=== PATIENT | female | born 1995 | race Caucasian/White ===

== ENCOUNTER → 2016-09-21 | Outpatient (CLI) | payer BC ==
[~2016-09-21] MED LIST: NORC5TAB PO; PERC5TAB12 PO
[2016-09-21 13:11] LABS: BASOPHIL # 0.1 TH/MM3 (0-0.2); BASOPHIL % 0.7 % (0.0-2.0); EOSINOPHIL # 0.3 TH/MM3 (0-0.4); EOSINOPHIL % 3.7 % (0.0-4.0); HEMATOCRIT 39.7 % (35.0-46.0); HEMO FLAGS DIFF FINAL; LYMPH % 16.8 % (9.0-44.0); LYMPHOCYTE # 1.4 TH/MM3 (1.0-4.8); MEAN CELL VOLUME 88.1 FL (80.0-100.0); MEAN CORPUSCULAR HEMOGLOBIN 29.6 PG (27.0-34.0); MEAN CORPUSCULAR HGB CONC 33.6 % (32.0-36.0); MONO % 6.4 % (0.0-8.0); NEUT % 72.4 % (16.0-70.0); PLATELET COUNT 320 TH/MM3 (150-450); RED BLOOD COUNT 4.51 MIL/MM3 (4.00-5.30); RED CELL DISTRIBUTION WIDTH 12.9 % (11.6-17.2); WHITE BLOOD COUNT 8.3 TH/MM3 (4.0-11.0)
[2016-09-21 13:32] LABS: ANION GAP 10 MEQ/L (5-15); AST (GOT) 8 U/L (15-37); BICARBONATE 25.4 MEQ/L (21.0-32.0); BLOOD UREA NITROGEN 10 MG/DL (7-18); CHLORIDE 104 MEQ/L (98-107); GLOMERULAR FILTRATION RATE 117 ML/MIN (>89); POTASSIUM 3.9 MEQ/L (3.5-5.1); SODIUM (NA) 139 MEQ/L (136-145)
[2016-09-21 13:33] LABS: ALT (GPT) 8 U/L (10-53)
[2016-09-21 13:35] LABS: ALKALINE PHOSPHATASE 67 U/L (45-117); BLOOD, URINE NEG (NEG); COMMENT (UR) CULT NOT INDICATED; CULTURE IF INDICATED CULT NOT INDICATED; GLUCOSE,URINE NEG (NEG); KETONE, URINE NEG (NEG); MUCUS URINE FEW /lpf (OCC); NITRITE,URINE NEG (NEG); PH, URINE 7.5 (5.0-8.5); SQUAMOUS EPITHELIAL CELL URINE 4 /hpf (0-5); TOTAL BILIRUBIN ADULT 0.7 MG/DL (0.2-1.0); URINE COLOR YELLOW (YELLW/STRAW)
--- NOTE | 2016-10-03 06:14 | MP ---
cc: Xu STANLEY MD DATE OF SURGERY: 09/30/2016 PREOPERATIVE DIAGNOSIS: 1. Large ovarian cyst. 2. Menorrhagia. 3. Dysmenorrhea. 4. Pelvic pain. POSTOPERATIVE DIAGNOSIS: 1. Large ovarian cyst. 2. Menorrhagia. 3. Dysmenorrhea. 4. Pelvic pain. 5. Endometriosis. OPERATION: 1. Examination under anesthesia. 2. Dilation and curettage of the uterus. 3. Hysteroscopic exam. 4. Laparoscopic examination. 5. Right ovarian cystectomy. 6. Lysis of adhesions. 7. Multiple biopsies of the peritoneum. ANESTHESIA: General endotracheal intubation SURGEON Xu Stanley MD. FINDINGS The D&C revealed a normal uterine cavity with no polyps. There was some cervical stenosis and we did begin to make a false passage but that was quickly remedied with the hysteroscope. The tissue was normal in amount. There were no polyps or submucous myomas seen. The laparoscopic exam revealed a huge right ovary 7 x 8 cm. The fluid inside looked like a hemorrhagic fluid and not like to chocolate cyst, however, she did have several adhesions around this ovary that needed to be taken down a reminiscent of endometriosis. There was adhesions around the right ovary and there was several spots of possible endometriosis. The cul-de-sacs were clean and the pelvic singh had some of these small areas that were reminiscent of endometriosis and they were biopsied. The upper abdomen looked normal, complications were none. Counts were correct. Estimated blood loss 25 cc. Fluids are crystalloid. The patient tolerated the procedure well and went to the recovery room in good condition. PROCEDURE IN DETAIL The patient was taken to the operating room identified by name band and verbally. She was given a general anesthetic, carefully placed in dorsolithotomy position, prepped and draped in the usual sterile manner for laparoscopic surgery. The time-out was taken and a Donaldson catheter was inserted. Examination under anesthesia was carried out with the above findings essentially the cyst was not palpable but could feel a fullness on a right side. Once examination under anesthesia was carried out, a weighted speculum was placed in the vagina. The anterior lip of cervix was grasped with a single-tooth tenaculum. There was a bit of cervical stenosis and we began to dilate her into took the hysteroscope and looked in, we had created a false passage so I went back and got a small probe, found the os and then serially dilated without difficulty. This gave us a decent visualization of the endometrial cavity #1 sharp curette was then used to obtain the endometrial curettings. I felt that some of her dysmenorrhea may be due to the cervical stenosis. At this point a Hulka clamp was placed and the surgeon changed gloves and the small subumbilical incision was made with a 5 mm trocar we entered the abdomen under direct vision and a pneumoperitoneum was created with 3 liters of CO2. Once we visualize the abdomen and pelvis. We decided we could try to do this laparoscopically inferior lateral to the umbilicus on the left we put a 12-mm port and on the right at 5 mm port. The ovary was opened up and a thin brown fluid was noted. It looked more like a hemorrhagic cyst then endometriotic cyst. Once we opened the ovary the cyst was fairly large but he could see that the cyst was lined with a cover and we felt that we could dissect this off. We needed one more puncture so left of the umbilicus we placed 5 mm trocar without difficulty and held the ovary, that thin layer of the cyst wall was then carefully dissected free and sent for pathologic evaluation. The bed was then coagulated with Kleppinger forceps. The bleeding was excellent and felt like we had done this really great job on getting that cyst wall out of her ovary. At this point we took a 2-0 suture and repaired the defect in the ovary. The adhesions were taken down all around that ovary with blunt and sharp dissection without any difficulty. Once this had been accomplished the ovary looked fairly normal. We used a large amount of fluid approximately 3 liters to wash out the abdomen and pelvis at this time and then we began taking biopsies of the anterior and posterior cul-de-sac to try to confirm the diagnosis of endometriosis. At this point everything looked normal. We took pictures and looked around the entire pelvis and abdomen. The left ovary was perfectly normal. The tubes were perfectly normal. At this point, once everything was inspected and hemostatic. We removed the trocars, repaired the 12-mm fascial defect with a 2-0 Vicryl. Skin was repaired with 4-0 Monocryl. She tolerated the procedure well went to recovery room in good condition R. MD EV Mcintyre/eddie /12:53 PM /5:50 AM
== END ==
LOC: CPRE 12:33
PROVIDERS: ATTEND Obstetrics & Gynecology
DX: Z01.812 Encounter for preprocedural laboratory examination (principal); N83.201 Unspecified ovarian cyst, right side; R10.2 Pelvic and perineal pain; N92.0 Excessive and frequent menstruation with regular cycle; N94.6 Dysmenorrhea, unspecified
CPT/HCPCS: 36415; 80053; 81001; 85025

== ENCOUNTER 2016-09-30 07:59 | Observation (INO) | payer BC ==
[~2016-09-30] VITALS: Ht 165.1 cm; Wt 86.8 kg
[2016-09-30 08:29] VITALS: BP 123/83; PULSE 83; RESP 20; TEMP 99; O2SAT 97
[2016-09-30] MEDS ORDERED: METOPROLOL TARTRATE 25 MG TAB PO PRN (08:30)
[2016-09-30] MEDS ORDERED: INSULIN HUMAN REGULAR 1,000 UNITS/10 ML VIAL SQ PRN (08:30)
[2016-09-30] MEDS ORDERED: CHLORHEXIDINE GLUCONATE 2 % 1 PACK (2 CLOTHS) TOPICAL PRN (08:30)
[2016-09-30] MEDS ORDERED: POVIDONE IODINE 5% (ANTISEPSIS KIT) 4 APPLICATIONS EACH NARE PRN (08:30)
[2016-09-30] MEDS ORDERED: SODIUM CHLORID 0.9% 500 ML IV PRN (08:30)
[2016-09-30] MEDS ORDERED: DEXAMETHASONE SOD PHOS 4 MG/ML VIAL ONE (09:48)
[2016-09-30] MEDS ORDERED: ACETAMINOPHEN 1000 MG/100 ML VIAL IV ONE (09:48)
[2016-09-30] MEDS ORDERED: MIDAZOLAM HCL 2 MG/2 ML VIAL ONE ×2 (09:48→14:09)
[2016-09-30] MEDS ORDERED: FAMOTIDINE 20 MG/2 ML VIAL ONE (09:49)
[2016-09-30] MEDS ORDERED: OXYTOCIN 10 UNIT/ML AMP ONE (10:24)
[2016-09-30] MEDS ORDERED: SILVER NITR/POTASSIUM NITRATE APPLICATORS ONE (10:24)
[2016-09-30 10:54] LABS: BETA HCG QUANT LESS THAN 1 MIU/ML (0-5)
[2016-09-30] MEDS ORDERED: NORMOSOL R INJ 1,000 ML IV ONE (12:00)
[2016-09-30] MEDS ORDERED: NEOSTIGMINE 3 MG/3 ML SYR IV ONE (12:00)
[2016-09-30] MEDS ORDERED: KETOROLAC TROMETHAMINE 60 MG/2 ML (IM) VIAL IM ONE (12:00)
[2016-09-30] MEDS ORDERED: ONDANSETRON HCL 4 MG/2 ML VIAL IV PUSH ONE (12:00)
[2016-09-30] MEDS ORDERED: PROPOFOL 200 MG/20 ML AMP IV ONE (12:00)
[2016-09-30] MEDS ORDERED: DO NOT ADM ANY ANTICOAGULANT DRUGS PRN (13:43)
[2016-09-30] MEDS ORDERED: oxyCODONE/ACETAMINOPHEN 5 MG/325 MG TAB PO PRN (14:00)
[2016-09-30] MEDS ORDERED: fentaNYL CITRATE 250 MCG/5 ML AMP ONE (14:10)
[2016-09-30] MEDS ORDERED: *morphine SULFATE 8 MG/ML PERIprocedure ONLY ONE ×3 (14:14→14:56)
[2016-09-30] MEDS ORDERED: *MEPERIDINE 25 MG INJ VIAL PERIprocedural Use ONLY ONE (14:18)
[2016-09-30] MEDS ORDERED: *ONDANSETRON 4 MG VIAL PERIprocedural Use ONLY ONE (14:22)
[2016-09-30] MEDS ORDERED: *PROMETHAZINE 25 MG/ML VIAL PERIprocedural use ONLY ONE (14:50)
[2016-09-30] MEDS ORDERED: ONDANSETRON HCL 4 MG/2 ML VIAL IV PUSH PRN ×2 (15:00→18:45)
[2016-09-30] MEDS: LACTATED RINGER'S 1000 ML IV PRN ×2 (17:50→22:36)
[2016-09-30] MEDS: oxyCODONE/ACETAMINOPHEN 5 MG/325 MG TAB PO PRN (17:51)
[2016-09-30 18:00] VITALS: BP 118/70; PULSE 109; RESP 18; TEMP 98.2
[2016-09-30 19:30] VITALS: BP 114/65; PULSE 96; RESP 18; TEMP 98.4; O2SAT 96
[2016-09-30] MEDS: HYDROmorphone HCL PF 2 MG/ML VIAL IM PRN ×2 (19:35→23:40)
[2016-09-30] MEDS ORDERED: DOCUSATE SODIUM 50 MG/SENNA 8.6 MG TAB PO PRN (22:30)
[2016-09-30] MEDS ORDERED: PROMETHAZINE HCL 25 MG SUPP RECTAL PRN (22:30)
[2016-09-30] MEDS ORDERED: PROMETHAZINE INJ 25 MG/ML VIAL IM PRN (22:30)
[2016-09-30] MEDS: ZOLPIDEM TARTRATE 5 MG TAB PO PRN (22:36)
[2016-09-30] MEDS: DOCUSATE SODIUM 50 MG/SENNA 8.6 MG TAB PO ONE ×2 (22:36→22:41)
[2016-09-30] MEDS: KETOROLAC TROMETHAMINE 30 MG/ML (IVP) VIAL IV PUSH SCH (22:37)
[2016-09-30] MEDS ORDERED: PROCHLORPERAZINE 25 MG SUPP RECTAL PRN (22:45)
[2016-09-30 23:30] VITALS: BP 112/71; PULSE 95; RESP 18; TEMP 99.1; O2SAT 95
[2016-10-01] MEDS: HYDROmorphone HCL PF 2 MG/ML VIAL IM PRN ×2 (03:21→07:52)
[2016-10-01 03:30] VITALS: BP 109/67; PULSE 98; RESP 18; TEMP 99.2; O2SAT 98
[2016-10-01] MEDS: KETOROLAC TROMETHAMINE 30 MG/ML (IVP) VIAL IV PUSH SCH ×2 (04:56→11:48)
[2016-10-01] MEDS: LACTATED RINGER'S 1000 ML IV PRN ×2 (06:04→13:55)
[2016-10-01 07:35] VITALS: BP 95/58; PULSE 114; RESP 18; TEMP 98.4; O2SAT 99
--- NOTE | 2016-10-01 09:44 | RADRPT ---
EXAM DATE/TIME: 10/01/2016 09:14 [facility] COMPARISON: No previous studies available for comparison. INDICATIONS : Chest pain. Shortness of breath. MEDICAL HISTORY : None. SURGICAL HISTORY : None. ENCOUNTER: Initial ACUITY: 1 day PAIN SCORE: 8/10 LOCATION: Left chest FINDINGS: There are patchy infiltrates in both lung bases. The upper lung borja are clear. No definite pleural effusions. The heart size is within normal limits. The bony structures are grossly intact. CONCLUSION: There are patchy infiltrates in both lung bases suggestive of atelectasis versus pneumonia. Abelino De La Paz MD on October 01, 2016 at 9:41 Board Certified Radiologist. This report was verified electronically.
[2016-10-01 10:43] LABS: BLOOD GAS HCO3 23 mmol/L (22-26); BLOOD GAS METHEMOGLOBIN 0.9 % (0-2); BLOOD GAS O2 HGB SATURATION 83 % (90-100); BLOOD GAS OXYGEN CONTENT 13.1 Vol % (12.0-20.0); BLOOD GAS PCO2 39 mmHg (38-42); BLOOD GAS PO2 51 mmHg (61-120); BLOOD GAS TOTAL HGB 11.2 G/DL (12.0-16.0); TEMP CORR TO 98.6
[2016-10-01 10:47] LABS: CRITICAL VALUE YES; FIO2 21 %; OXYGEN DEVICE ROOM AIR
[2016-10-01 10:48] LABS: DRAW SITE RT RADIAL; NUMBER OF ARTERIAL PUNCTURES 1; STAT NO; ULNAR PULSE PRESENT
[2016-10-01 11:00] VITALS: O2SAT 90
[2016-10-01 11:55] VITALS: BP 122/74; PULSE 111; RESP 18; TEMP 99.4; O2SAT 93
--- NOTE | 2016-10-01 12:49 | HHI.PR ---
Subjective Remarks Had a terrible time yesterday with the nausea and vomiting. The nausea is better today I am having some SOB and chest pains. No fever or chills/ Objective Vital Signs Date Time Temp Pulse Resp B/P Pulse Ox O2 Delivery O2 Flow Rate FiO2 10/01/16 07:35 98.4 114 18 95/58 99 10/01/16 03:30 99.2 98 18 109/67 98 09/30/16 23:30 99.1 95 18 112/71 95 09/30/16 19:30 98.4 96 18 114/65 96 09/30/16 18:00 98.2 109 18 118/70 09/30/16 16:00 108 16 115/69 96 Room Air 09/30/16 15:30 110 16 115/61 95 Room Air 09/30/16 15:00 110 16 129/78 96 Room Air 09/30/16 14:45 110 16 101/59 96 Room Air 09/30/16 14:30 106 16 103/59 95 09/30/16 14:15 104 16 108/65 95 Nasal Cannula 2 09/30/16 14:00 82 16 110/64 97 Nasal Cannula 2 09/30/16 13:48 98.5 84 16 110/60 95 Nasal Cannula 2 I/O 09/30/16 09/30/16 09/30/16 10/01/16 10/01/16 10/01/16 06:59 14:59 22:59 06:59 14:59 22:59 Intake Total 950 ml Output Total 650 ml 200 ml Balance 300 ml -200 ml Intake IV Total 950 ml Output Urine Total 450 ml 200 ml Emesis 200 ml Imaging Last 24 hours Impressions Chest X-Ray 10/01/16 0000 Signed Impressions: Service Date/Time: September 09:14 - CONCLUSION: There are patchy infiltrates in both lung bases suggestive of atelectasis versus pneumonia. Abelino De La Paz MD Other Results Color is good this am Chest is clear. CV RRR no murmer Abd issoft and non tender. Incision is clean and dry Ext No CCE. Assessment and Plan Assessment and Plan POD #1 S/P D+C, Laparoscopy with ovarian cystectomy SOB Not sure the etiology of this so I will get a EKG, ABG and CXR. She is super anxious and will see what the work up shows. Her surgery went perfectly but now she is having problems so I am not ready to discharge her today. Will order a medicine consultation if abnormalities are found. Xu Morales MD Oct 01, 2016 12:49
[2016-10-01] MEDS: HYDROmorphone HCL PF 1 MG/ML VIAL IM PRN ×3 (14:14→21:07)
[2016-10-01] MEDS ORDERED: SCOPOLAMINE 1.5 MG PATCH T-DERMAL ONE (14:45)
[2016-10-01 15:36] LABS: AUTOMATED NEUTROPHIL # 6.8 TH/MM3 (1.8-7.7); BASOPHIL % 0.3 % (0.0-2.0); EOSINOPHIL # 0.1 TH/MM3 (0-0.4); HEMATOCRIT 32.4 % (35.0-46.0); HEMO FLAGS DIFF FINAL; LYMPH % 17.5 % (9.0-44.0); LYMPHOCYTE # 1.6 TH/MM3 (1.0-4.8); MEAN CELL VOLUME 87.7 FL (80.0-100.0); MEAN CORPUSCULAR HEMOGLOBIN 30.2 PG (27.0-34.0); MEAN CORPUSCULAR HGB CONC 34.5 % (32.0-36.0); MONO % 6.8 % (0.0-8.0); NEUT % 74.4 % (16.0-70.0); PLATELET COUNT 208 TH/MM3 (150-450); RED BLOOD COUNT 3.69 MIL/MM3 (4.00-5.30); RED CELL DISTRIBUTION WIDTH 12.7 % (11.6-17.2); WHITE BLOOD COUNT 9.1 TH/MM3 (4.0-11.0)
--- NOTE | 2016-10-01 17:17 | HHI.PR ---
Subjective Interval History This is a 21-year-old female who had excision of a right sided hemorrhagic ovarian cyst 1 09/30/16. Since the surgery she has been repeatedly vomiting. Her blood gas showed hypoxemia with room air PaO2 of 51 and a saturation of 83% . Chest x-ray showed bibasilar infiltrate versus atelectasis. The patient was seen in the presence of her mother and her nurse in room 100 at [facility] by the undersigned. She is alert and oriented. She was not in distress during this examination except for anxiety. No fever no cough no sputum. No urinary symptoms. She is receiving 1 mg of IM Dilaudid for abdominal pain, she said that it does not work. No chest pain. She does seem anxious with heart rate about 100 Review of Systems Constitutional Constitutional Remarks As detailed above, 10 systems reviewed and otherwise negative Vitals/Results Intake & Output 09/30/16 09/30/16 10/01/16 15:00 23:00 07:00 Intake Total 950 ml Output Total 650 ml 200 ml Balance 300 ml -200 ml Intake IV Total 950 ml Output Urine Total 450 ml 200 ml Emesis 200 ml Vital Signs Vital Signs Date Time Temp Pulse Resp B/P Pulse Ox O2 Delivery O2 Flow Rate FiO2 10/01/16 11:55 99.4 111 18 122/74 93 10/01/16 11:00 90 Nasal Cannula 2.00 10/01/16 07:35 98.4 114 18 95/58 99 10/01/16 03:30 99.2 98 18 109/67 98 09/30/16 23:30 99.1 95 18 112/71 95 09/30/16 19:30 98.4 96 18 114/65 96 09/30/16 18:00 98.2 109 18 118/70 CBC/BMP: 10/01/16 1507 10/01/16 1507 Lab Results Laboratory Tests Test 10/01/16 10/01/16 10:23 15:07 Blood Gas Puncture Site RT RADIAL Blood Gas Patient Temperature 98.6 Blood Gas HCO3 23 mmol/L Blood Gas Base Excess -1.0 mmol/L Blood Gas Oxygen Saturation 83 % Arterial Blood pH 7.40 Arterial Blood Partial 39 mmHg Pressure CO2 Arterial Blood Partial 51 mmHg Pressure O2 Arterial Blood Oxygen Content 13.1 Vol % Arterial Blood 2.0 % Carboxyhemoglobin Arterial Blood Methemoglobin 0.9 % Blood Gas Hemoglobin 11.2 G/DL Oxygen Delivery Device ROOM AIR Blood Gas Inspired Oxygen 21 % White Blood Count 9.1 TH/MM3 Red Blood Count 3.69 MIL/MM3 Hemoglobin 11.2 GM/DL Hematocrit 32.4 % Mean Corpuscular Volume 87.7 FL Mean Corpuscular Hemoglobin 30.2 PG Mean Corpuscular Hemoglobin 34.5 % Concent Red Cell Distribution Width 12.7 % Platelet Count 208 TH/MM3 Mean Platelet Volume 9.6 FL Neutrophils (%) (Auto) 74.4 % Lymphocytes (%) (Auto) 17.5 % Monocytes (%) (Auto) 6.8 % Eosinophils (%) (Auto) 1.0 % Basophils (%) (Auto) 0.3 % Neutrophils # (Auto) 6.8 TH/MM3 Lymphocytes # (Auto) 1.6 TH/MM3 Monocytes # (Auto) 0.6 TH/MM3 Eosinophils # (Auto) 0.1 TH/MM3 Basophils # (Auto) 0.0 TH/MM3 CBC Comment DIFF FINAL Differential Comment Blood Urea Nitrogen 5 MG/DL Creatinine 0.57 MG/DL Estimat Glomerular Filtration 131 ML/MIN Rate Lactic Acid Level 1.0 mmol/L Physical Exam General General Appearance: Well Developed, Anxious, Obese Eyes Eye Exam: Pupils Reactive Ears & Nose Ears & Nose Exam: Nasal Mucosa [place] Throat Throat Exam: Oral Mucosa [place] & Moist Neck Neck Exam: Trachea Midline Pulmonary Resp Exam: Breath Sounds Equal, No Distress Cardiology CV Exam: Tachycardia Gastrointestinal/Abdomen GI Exam: Soft, Bowel Sounds Present Musculoskeletal MS Exam: Normal Gait, Normal Tone, Good Strength Integumentary Skin Exam: Warm, Dry Neurologic Neuro Exam: Alert, Awake, Oriented, Speech Clear, Moving All Extremities, Sample Display Preparer Equal, No Focal Deficits Psychiatric Psych Exam: Appropriate Responses VTE Prophylaxis VTE Prophylaxis Device: SCDs Assessment/Plan Assessment/Plan Assessment Intractable postoperative vomiting Hypoxemia Sinus tachycardia Normal lactic acid Anxiety Management Continue supplemental oxygen Pain control CT angiogram of the chest rule out pulmonary embolism Continue incentive spirometry Within normal lactic acid she is unlikely to have ammonia Most probably she does have by basilar atelectasis may be causing the hypoxemia Clinically the suspicion for pulmonary embolism is low however It would be prudent to check a CT angiogram to rule out that small possibility Thank you for allowing us to participate in the care of this patient in consultation The case was discussed with her and her mother and her nurse Case was discussed also with Dr. Morales If the CT of the chest is negative she could be discharged home To assist in her nausea control scopolamine was also ordered 40 minutes Medardo Ross MD Oct 01, 2016 17:17
[2016-10-01 17:45] VITALS: BP 118/78; PULSE 110; RESP 22; TEMP 98.2; O2SAT 94
[2016-10-01] MEDS ORDERED: IOHEXOL 350 MG/ML 10 ML VIAL (for RAD DIAG) IV ONE (19:17)
--- NOTE | 2016-10-01 19:19 | RADRPT ---
EXAM DATE/TIME: 10/01/2016 17:03 [facility] COMPARISON: No previous studies available for comparison. INDICATIONS : Short of breath. IV CONTRAST: 50 cc Omnipaque 350 (iohexol) IV RADIATION DOSE: 15.51 CTDIvol (mGy) MEDICAL HISTORY : None SURGICAL HISTORY : None. ENCOUNTER: Initial ACUITY: 1 day PAIN SCALE: 3/10 LOCATION: Bilateral chest TECHNIQUE: Volumetric scanning of the chest was performed using a pulmonary embolism protocol MIP images were re constructed. Using automated exposure control and adjustment of the mA and/or kV according to patien t size, radiation dose was kept as low as reasonably achievable to obtain optimal diagnostic quality images. DICOM format image data is available electronically for review and comparison. Follow-up recommendations for incidentally detected pulmonary nodules are based at a minimum on nodul e size and patient risk factors according to Fleischner Society Guidelines. FINDINGS: PULMONARY ARTERIES: No filling defects are seen in the pulmonary arteries through the segmental level. LUNGS: Bibasilar consolidative changes. PLEURAE: There is no pleural thickening or pleural effusion. MEDIASTINUM: There is good visualization of the great vessels of the middle mediastinum. No evidence of mediastin al or hilar adenopathy/mass. MUSCULOSKELETAL: Within normal limits for patient age. MISCELLANEOUS: The visualized upper abdominal organs demonstrate no acute abnormality. CONCLUSION: Bibasilar consolidative changes without central pulmonary emboli. Mian Saucedo MD FACR on October 01, 2016 at 19:17 Board Certified Radiologist. This report was verified electronically.
[2016-10-01] MEDS: IBUPROFEN 600 MG TAB PO PRN (19:52)
[2016-10-01 20:00] VITALS: BP 119/80; PULSE 113; RESP 22; TEMP 98.8; O2SAT 93
[2016-10-01] MEDS ORDERED: HYDROmorphone HCL PF 1 MG/ML VIAL IM PRN (21:28)
[2016-10-01] MEDS ORDERED: LACTATED RINGER'S 1000 ML INJ 1,000 ML IV SCH (21:30)
[2016-10-01] MEDS: ZOLPIDEM TARTRATE 5 MG TAB PO PRN (23:26)
[2016-10-02] VITALS: PULSE 107; RESP 18; TEMP 99.3; O2SAT 93
[2016-10-02 03:00] VITALS: BP 97/65; PULSE 114; RESP 18; TEMP 98.3; O2SAT 94
[2016-10-02] MEDS: IBUPROFEN 600 MG TAB PO PRN (03:00)
[2016-10-02] MEDS: oxyCODONE/ACETAMINOPHEN 5 MG/325 MG TAB PO PRN ×2 (03:01→08:33)
--- NOTE | 2016-10-02 07:30 | HHI.PR ---
Subjective Remarks Doing better, no vomiting last nite SOB is better and using the incentive spirometry. Pain is controlled with oral meds. Objective Vital Signs Date Time Temp Pulse Resp B/P Pulse Ox O2 Delivery O2 Flow Rate FiO2 10/02/16 04:15 16 10/02/16 04:15 16 10/02/16 03:00 98.3 114 18 97/65 94 10/02/16 00:00 99.3 107 18 93 10/01/16 22:00 20 10/01/16 20:00 98.8 113 22 119/80 93 10/01/16 18:15 Nasal Cannula 2.00 10/01/16 17:45 98.2 110 22 118/78 94 10/01/16 11:55 99.4 111 18 122/74 93 10/01/16 11:00 90 Nasal Cannula 2.00 10/01/16 07:35 98.4 114 18 95/58 99 I/O 10/01/16 10/01/16 10/01/16 10/02/16 10/02/16 10/02/16 06:59 14:59 22:59 06:59 14:59 22:59 Intake Total 1560 ml Output Total 200 ml 800 ml 250 ml Balance -200 ml -800 ml 1310 ml Intake Oral 360 ml IV Total 1200 ml Output Urine Total 200 ml 800 ml 250 ml # Voids 1 Result Diagram: 10/01/16 1507 10/01/16 1507 Imaging Last 48 hours Impressions Chest X-Ray 10/01/16 0000 Signed Impressions: Service Date/Time: September 09:14 - CONCLUSION: There are patchy infiltrates in both lung bases suggestive of atelectasis versus pneumonia. Abelino De La Paz MD CT Angiography 10/01/16 0000 Signed Impressions: Service Date/Time: September 17:03 - CONCLUSION: Bibasilar consolidative changes without central pulmonary emboli. Mian Saucedo MD FACR Other Results chest is clear CV RRR not tachycardic now Abd is soft and non tender. Ext no CCE Assessment and Plan Assessment and Plan POD #2 S/P D+C, Laparoscopy with ovarian cystectomy Anemia will start fe after the narcotics. Ready to go home RTO in one week. Xu Morales MD Oct 02, 2016 07:30
--- NOTE | 2016-10-02 07:31 | HHI.DCPOC ---
Discharge Care Plan Diagnosis: (1) Ovarian benign neoplasm (2) Nausea after anesthesia Report Symptoms to Your Doctor -Temperature above 100.5 degrees -Redness, of incision or excessive or foul smelling drainage -Unusual pain or calf pain -Increased vaginal bleeding -Painful or difficulty urinating -Feelings of extreme sadness or anxiety after 2 weeks Goals to Promote Your Health * To prevent worsening of your condition and complications * To maintain your health at the optimal level Directions to Meet Your Goals Take your medications as prescribed Follow your dietary instruction Follow activity as directed Ensure plenty of rest for recovery Drink fluids for hydration Keep your appointments as scheduled Take your immunizations and boosters as scheduled If your symptoms worsen call your PCP, if no PCP go to Urgent Care Center or Emergency Room Smoking is Dangerous to Your Health. Avoid second hand smoke Call the 24-hour crisis hotline for domestic abuse at Xu Morales MD Oct 02, 2016 07:31
[2016-10-02 08:30] VITALS: BP 103/70; PULSE 98; RESP 18; TEMP 97.7; O2SAT 94
[2016-10-02 09:00] VITALS: O2SAT 94
--- NOTE | 2016-10-02 14:16 | EKG ---
Date Performed: 10/01/2016 Time Performed: 10:22:35 PTAGE: 21 years EKG: SINUS TACHYCARDIA INCOMPLETE RIGHT BUNDLE BRANCH BLOCK NONSPECIFIC T-WAVE ABNORMALITY ABNOR MAL RHYTHM ECG NO PREVIOUS TRACING DOCTOR: Shant Ramsey Interpretating Date/Time 10/02/2016 14:15:07
--- NOTE | 2016-10-03 06:14 | MP ---
cc: Xu STANLEY MD DATE OF SURGERY: 09/30/2016 PREOPERATIVE DIAGNOSIS: 1. Large ovarian cyst. 2. Menorrhagia. 3. Dysmenorrhea. 4. Pelvic pain. POSTOPERATIVE DIAGNOSIS: 1. Large ovarian cyst. 2. Menorrhagia. 3. Dysmenorrhea. 4. Pelvic pain. 5. Endometriosis. OPERATION: 1. Examination under anesthesia. 2. Dilation and curettage of the uterus. 3. Hysteroscopic exam. 4. Laparoscopic examination. 5. Right ovarian cystectomy. 6. Lysis of adhesions. 7. Multiple biopsies of the peritoneum. ANESTHESIA: General endotracheal intubation SURGEON Xu Stanley MD. FINDINGS The D&C revealed a normal uterine cavity with no polyps. There was some cervical stenosis and we did begin to make a false passage but that was quickly remedied with the hysteroscope. The tissue was normal in amount. There were no polyps or submucous myomas seen. The laparoscopic exam revealed a huge right ovary 7 x 8 cm. The fluid inside looked like a hemorrhagic fluid and not like to chocolate cyst, however, she did have several adhesions around this ovary that needed to be taken down a reminiscent of endometriosis. There was adhesions around the right ovary and there was several spots of possible endometriosis. The cul-de-sacs were clean and the pelvic singh had some of these small areas that were reminiscent of endometriosis and they were biopsied. The upper abdomen looked normal, complications were none. Counts were correct. Estimated blood loss 25 cc. Fluids are crystalloid. The patient tolerated the procedure well and went to the recovery room in good condition. PROCEDURE IN DETAIL The patient was taken to the operating room identified by name band and verbally. She was given a general anesthetic, carefully placed in dorsolithotomy position, prepped and draped in the usual sterile manner for laparoscopic surgery. The time-out was taken and a Donaldson catheter was inserted. Examination under anesthesia was carried out with the above findings essentially the cyst was not palpable but could feel a fullness on a right side. Once examination under anesthesia was carried out, a weighted speculum was placed in the vagina. The anterior lip of cervix was grasped with a single-tooth tenaculum. There was a bit of cervical stenosis and we began to dilate her into took the hysteroscope and looked in, we had created a false passage so I went back and got a small probe, found the os and then serially dilated without difficulty. This gave us a decent visualization of the endometrial cavity #1 sharp curette was then used to obtain the endometrial curettings. I felt that some of her dysmenorrhea may be due to the cervical stenosis. At this point a Hulka clamp was placed and the surgeon changed gloves and the small subumbilical incision was made with a 5 mm trocar we entered the abdomen under direct vision and a pneumoperitoneum was created with 3 liters of CO2. Once we visualize the abdomen and pelvis. We decided we could try to do this laparoscopically inferior lateral to the umbilicus on the left we put a 12-mm port and on the right at 5 mm port. The ovary was opened up and a thin brown fluid was noted. It looked more like a hemorrhagic cyst then endometriotic cyst. Once we opened the ovary the cyst was fairly large but he could see that the cyst was lined with a cover and we felt that we could dissect this off. We needed one more puncture so left of the umbilicus we placed 5 mm trocar without difficulty and held the ovary, that thin layer of the cyst wall was then carefully dissected free and sent for pathologic evaluation. The bed was then coagulated with Kleppinger forceps. The bleeding was excellent and felt like we had done this really great job on getting that cyst wall out of her ovary. At this point we took a 2-0 suture and repaired the defect in the ovary. The adhesions were taken down all around that ovary with blunt and sharp dissection without any difficulty. Once this had been accomplished the ovary looked fairly normal. We used a large amount of fluid approximately 3 liters to wash out the abdomen and pelvis at this time and then we began taking biopsies of the anterior and posterior cul-de-sac to try to confirm the diagnosis of endometriosis. At this point everything looked normal. We took pictures and looked around the entire pelvis and abdomen. The left ovary was perfectly normal. The tubes were perfectly normal. At this point, once everything was inspected and hemostatic. We removed the trocars, repaired the 12-mm fascial defect with a 2-0 Vicryl. Skin was repaired with 4-0 Monocryl. She tolerated the procedure well went to recovery room in good condition R. MD EV Mcintyre/eddie /12:53 PM /5:50 AM MTDJoseph
[2016-10-04] MEDS ORDERED: REMOVE OLD SCOPOLAMINE PATCH T-DERMAL SCH (15:30)
== END 2016-10-02 11:52 | disposition home or self-care (01) ==
LOC: HSDC 07:59 → H1EA 13:45
PROVIDERS: ADMIT Obstetrics & Gynecology; ATTEND Obstetrics & Gynecology
PROC: 0UB04ZZ Excision of Right Ovary, Percutaneous Endoscopic Approach (ICD-10-PCS; principal; 2016-09-30 10:59)
PROC: 0UDB8ZX Extraction of Endometrium, Via Natural or Artificial Opening Endoscopic, Diagnostic (ICD-10-PCS; 2016-09-30 10:59)
DX: N80.9 Endometriosis, unspecified (principal); N83.201 Unspecified ovarian cyst, right side; N92.0 Excessive and frequent menstruation with regular cycle; N94.6 Dysmenorrhea, unspecified; R06.02 Shortness of breath; R09.02 Hypoxemia; I45.10 Unspecified right bundle-branch block; R00.0 Tachycardia, unspecified; D64.9 Anemia, unspecified
CPT/HCPCS: 01922; 36600; 58558; 58662; 71010; 71275; 76937; 82565; 82805; 83605; 84520; 84702; 85025; 86850; 86900; 86901; 86920; 88304; 88305; 93005; 94150; 96361; 96372; 96374; 96375; 96376; C1765; G0378; J0131; J1100; J1170; J1885; J2175; J2250; J2270; J2405; J2550; J2590; J2710; J3010; J7120; Q9967